=== PATIENT | female | born 1990 | race Caucasian/White ===

== ENCOUNTER 2019-10-27 19:59 | Observation (INO) ==
[2019-10-27] MEDS ORDERED: Ringers Solution, Lactated 1,000 ML ONE (20:35)
[2019-10-27 20:51] LABS: Bilirubin,Urine Negative (Negative); Blood,Urine Negative (Negative); Clarity,Urine Clear (Clear); Color,Urine Light-Yellow (Yellow); Glucose,Urine (UA) Normal (Normal); Ketones,Urine Negative (Negative); Leukocyte Esterase,Urine Negative (Negative); Nitrite,Urine Negative (Negative); PH,Urine 6.5 pH Units (5.0-8.0); Protein,Urine Negative (Neg-Trace); Specific Gravity,Urine 1.005 (1.010-1.025); Urobilinogen,Urine Normal (Normal)
[2019-10-27] MEDS ORDERED: Betamethasone Acet/SodPhos 30 MG/5 ML VIAL IM SCH (22:00)
[2019-10-27 22:35] LABS: Candida DNA Not Detected (Not Detect); Gardnerella DNA Not Detected (Not Detect); Trichomonas DNA Not Detected (Not Detect)
[2019-10-28] MEDS ORDERED: NIFEdipine 10 MG CAPSULE PO ONE (00:44)
[2019-10-28] MEDS ORDERED: Acetaminophen 325 MG TABLET PO ONE (08:25)
== END 2019-10-28 12:04 | disposition home or self-care (01) ==
LOC: 1NENULAB
PROVIDERS: ADMIT Student in an Organized Health Care Education/Training Program; ATTEND Student in an Organized Health Care Education/Training Program

== ENCOUNTER → 2019-11-21 15:53 | Observation (INO) | END | disposition home or self-care (01) | LOC: 1NENULAB | PROVIDERS: ADMIT Obstetrics & Gynecology; ATTEND Obstetrics & Gynecology ==

== ENCOUNTER 2019-11-27 09:03 | Inpatient (IN) ==
[~2019-11-27 09:03] MED LIST: *HR* FentaNYL (PF) 100 MCG/2 ML VIAL IVP PRN; Famotidine 20 MG/2 ML VIAL IVP PRN; Metoclopramide 10 MG/2 ML VIAL IVP PRN; Naloxone 0.4 MG/ML INJ IVP PRN; Ondansetron 4 MG/2 ML VIAL IVP PRN; Ringers Solution, Lactated 1,000 ML IVC SCH
[2019-11-27 09:14] LABS: Basophils % 0.3 %; Eosinophils # 0.1 K/mcL (0.0-0.6); Eosinophils % 0.5 %; Hematocrit 38.5 % (35.3-44.9); Hemoglobin 12.9 g/dL (11.5-15.4); Immature Granulocytes % 0.4 % (0-4); Lymphocytes # 1.6 K/mcL (0.6-4.6); Lymphocytes % 11.9 %; Mean Corpuscular HGB Conc 33.5 g/dL (31.6-35.5); Mean Corpuscular Hemoglobin 32.1 pg (28.0-33.3); Mean Corpuscular Volume 95.8 fL (83.0-100.0); Mean Platelet Volume 10.5 fL (9.4-12.4); Monocytes # 0.6 K/mcL (0.0-1.3); Monocytes % 4.7 %; Neutrophils # 11.3 K/mcL (1.6-8.9); Platelet Count 157 K/mcL (140-400); Red Blood Count 4.02 M/mcL (3.82-4.97); Red Cell Distribution Width 13.4 % (11.5-14.5); Segmented Neutrophils % 82.2 %; White Blood Count 13.7 K/mcL (4.3-11.1)
[2019-11-27 10:39] LABS: Amphetamine Screen,Urine Negative ng/mL (Cutoff=1000); Barbiturate Screen,Urine Negative ng/mL (Cutoff=200); Benzodiazepines Screen,Urine Negative ng/mL (Cutoff=200); Cannabinoid Screen,Urine Positive ng/mL (Cutoff = 50); Cocaine Screen,Urine Negative ng/mL (Cutoff= 300); Opiate Screen,Urine Negative ng/mL (Cutoff=300); Phencyclidine Screen,Urine Negative ng/mL (Cutoff=25)
[2019-11-27] MEDS ORDERED: Oxytocin 20 units/ LR 1000 mL 20 UNIT/1,000 ML BAG IVC ONE (12:41)
[2019-11-27] MEDS ORDERED: Methylergonovine 0.2 MG/ML AMPUL IM ONE (12:47)
[2019-11-27] MEDS ORDERED: Ibuprofen 600 MG TABLET PO ONE (13:07)
[2019-11-27] MEDS ORDERED: Lanolin 7 G OINT...G. TP PRN (15:50)
[2019-11-27] MEDS ORDERED: Oxytocin 20 units/ LR 1000 mL 20 UNIT/1,000 ML BAG IVC SCH (15:50)
[2019-11-27] MEDS ORDERED: Acetaminophen 325 MG TABLET PO PRN (15:50)
[2019-11-27] MEDS: Ibuprofen 600 MG TABLET PO PRN (19:49)
[2019-11-28] MEDS: Ibuprofen 600 MG TABLET PO PRN (04:18)
[2019-11-28 08:01] VITALS: BP 113/69
[2019-11-28] MEDS ORDERED: Prenatal Vit/FA 1 EACH TABLET PO SCH (09:00)
== END 2019-11-28 13:30 | disposition home or self-care (01) | DRG 560 ==
LOC: 1NENULAB → 1NENUOBS 15:45
PROVIDERS: ADMIT Student in an Organized Health Care Education/Training Program; ATTEND Student in an Organized Health Care Education/Training Program

== ENCOUNTER → 2021-06-17 03:40 | Observation (INO) ==
[2021-06-17 01:54] LABS: Bilirubin,Urine Negative (Negative); Blood,Urine Negative (Negative); Clarity,Urine Clear (Clear); Color,Urine Light-Yellow (Yellow); Glucose,Urine (UA) Normal (Normal); Ketones,Urine Negative (Negative); Leukocyte Esterase,Urine Negative (Negative); Nitrite,Urine Negative (Negative); PH,Urine 6.5 pH Units (5.0-8.0); Protein,Urine Negative (Neg-Trace); Specific Gravity,Urine 1.008 (1.010-1.025); Urobilinogen,Urine Normal (Normal)
== END | disposition home or self-care (01) ==
LOC: 1NENULAB
PROVIDERS: ADMIT Obstetrics & Gynecology; ATTEND Obstetrics & Gynecology

== ENCOUNTER 2021-07-09 01:05 | Inpatient (IN) ==
[~2021-07-09 01:05] MED LIST changes: -*HR* FentaNYL (PF) 100 MCG/2 ML VIAL IVP PRN; -Ringers Solution, Lactated 1,000 ML IVC SCH
[2021-07-09] MEDS ORDERED: Ringers Solution, Lactated 1,000 ML IVC SCH (01:15)
[2021-07-09] MEDS ORDERED: Oxytocin 30 UNIT/503 ML BAG IVC ONE (01:20)
[2021-07-09] MEDS ORDERED: Ketorolac 30 MG/ML VIAL IM ONE (01:38)
[2021-07-09 01:47] LABS: Amphetamine Screen,Urine Negative ng/mL (Cutoff=1000); Barbiturate Screen,Urine Negative ng/mL (Cutoff=200); Benzodiazepines Screen,Urine Negative ng/mL (Cutoff=200); Cannabinoid Screen,Urine Positive ng/mL (Cutoff = 50); Cocaine Screen,Urine Negative ng/mL (Cutoff= 300); Opiate Screen,Urine Negative ng/mL (Cutoff=300); Phencyclidine Screen,Urine Negative ng/mL (Cutoff=25)
[2021-07-09 01:49] LABS: Basophils # 0.1 K/mcL (0.0-0.2); Basophils % 0.4 %; Eosinophils # 0.1 K/mcL (0.0-0.6); Eosinophils % 0.6 %; Hematocrit 39.8 % (35.3-44.9); Hemoglobin 14.1 g/dL (11.5-15.4); Immature Granulocytes % 0.9 % (0-4); Lymphocytes # 2.6 K/mcL (0.6-4.6); Lymphocytes % 16.2 %; Mean Corpuscular HGB Conc 35.4 g/dL (31.6-35.5); Mean Corpuscular Hemoglobin 33.5 pg (28.0-33.3); Mean Corpuscular Volume 94.5 fL (83.0-100.0); Mean Platelet Volume 10.5 fL (9.4-12.4); Monocytes # 0.9 K/mcL (0.0-1.3); Monocytes % 5.8 %; Neutrophils # 12.3 K/mcL (1.6-8.9); Platelet Count 304 K/mcL (140-400); Red Blood Count 4.21 M/mcL (3.82-4.97); Red Cell Distribution Width 13.3 % (11.5-14.5); Segmented Neutrophils % 76.1 %; White Blood Count 16.2 K/mcL (4.3-11.1)
[2021-07-09 02:16] LABS: Influenza A PCR Negative (Negative); Influenza B PCR Negative (Negative); Resp. Syncytial Virus PCR Negative (Negative)
[2021-07-09 02:23] LABS: SARS-CoV-2 by PCR (In House) Negative (Negative)
[2021-07-09] MEDS ORDERED: OXYTOCIN/RINGERS LACTATE 10 UNIT/166.6 ML BAG IVC ONE (02:58)
[2021-07-09] MEDS ORDERED: Ondansetron ODT 4 MG TAB.RAPDIS SL PRN (02:58)
[2021-07-09] MEDS ORDERED: Rho Immune Globulin 1,500 UNIT SYRINGE IM PRN (02:58)
[2021-07-09] MEDS ORDERED: Benzocaine/Menthol 56 GM AEROSOL SPRAY TP PRN (02:58)
[2021-07-09] MEDS ORDERED: Measles/Mumps/Rubella Vacc 0.5 ML VIAL SQ PRN (02:58)
[2021-07-09] MEDS ORDERED: Oxytocin 30 UNIT/503 ML BAG IVC SCH (02:58)
[2021-07-09] MEDS ORDERED: Lanolin 7 G OINT...G. TP PRN (02:58)
[2021-07-09] MEDS: Acetaminophen 325 MG TABLET PO SCH ×2 (05:25→17:31)
[2021-07-09] MEDS: Ibuprofen 600 MG TABLET PO SCH ×2 (08:35→17:31)
[2021-07-09] MEDS: Prenatal Vit/FA 1 EACH TABLET PO SCH (08:35)
[2021-07-09 20:02] VITALS: O2SAT 98
[2021-07-10] MEDS: Ibuprofen 600 MG TABLET PO SCH (05:22)
[2021-07-10] MEDS: Acetaminophen 325 MG TABLET PO SCH (05:22)
[2021-07-10 07:18] VITALS: BP 105/59; PULSE 57; TEMP 98.4
[2021-07-10] MEDS: Prenatal Vit/FA 1 EACH TABLET PO SCH (08:05)
== END 2021-07-10 13:27 | disposition home or self-care (01) | DRG 560 ==
LOC: 1NENULAB → 1NENUOBS 04:32
PROVIDERS: ADMIT Obstetrics & Gynecology; ATTEND Obstetrics & Gynecology